=== PATIENT | female | born 1945 | race Caucasian/White ===

== ENCOUNTER → 2019-05-11 | Outpatient (CLI) | payer OTHER ==
[~2019-05-11] MED LIST: CIPR750 PO; RALO60 PO
== END | disposition home or self-care (01) ==
LOC: LAB EV 11:44 → LAB SHORT 11:44
DX: R30.0 Dysuria (principal)
CPT/HCPCS: 87086

== ENCOUNTER 2020-06-06 10:35 | Emergency (ER) | payer OTHER ==
[~2020-06-06] VITALS: Ht 172.7 cm; Wt 65.8 kg
[2020-06-06 11:46] LABS: BASOPHILS ABSOLUTE AUTO 0.03 K/mm3 (0.00-0.23); BASOPHILS PERCENT AUTO 1 % (0-2); EOSINOPHILS ABSOLUTE AUTO 0.18 K/mm3 (0.00-0.68); EOSINOPHILS PERCENT AUTO 4 % (0-6); Hematocrit 36.9 % (33.0-51.0); Hemoglobin 12.3 g/dL (11.5-16.0); IMMATURE GRAN ABSOLUTE AUTO 0.01 K/mm3 (0.00-0.10); IMMATURE GRAN PERCENT AUTO 0 % (0-1); LYMPHOCYTES ABSOLUTE AUTO 1.03 K/mm3 (0.84-5.20); LYMPHOCYTES PERCENT AUTO 21 % (21-46); MONOCYTES PERCENT AUTO 8 % (4-13); Mean Corpuscular HGB Conc 33.3 g/dL (31.5-36.5); Mean Corpuscular Volume 99 fL (80-100); Mean Platelet Volume 9.2 fL (9.1-12.4); NEUTROPHILS ABSOLUTE AUTO 3.29 K/mm3 (1.96-9.15); NEUTROPHILS PERCENT AUTO 67 % (41-73); Platelet Count 255 K/mm3 (150-400); RDW Coefficient Variation 11.5 % (11.7-14.2); RDW Standard Deviation 41.9 fL (35.1-46.3); Red Blood Cell Count 3.73 M/mm3 (3.80-5.20); White Blood Cell Count 4.94 K/mm3 (4.00-11.30)
[2020-06-06 12:09] LABS: Alanine Aminotransfer (ALT/SGP 32 U/L (12-78); Albumin, Blood 3.8 g/dL (3.4-5.0); Albumin/Globulin Ratio 1.2 (0.8-1.8); Alk Phos 79 U/L (50-136); Anion Gap 5 mmol/L (6-16); Aspartate Aminotrans (AST/SGOT 24 U/L (12-37); Bilirubin, Total 0.5 mg/dL (0.1-1.0); Blood Urea Nitrogen 22 mg/dL (8-24); Bun/Creatinine Ratio 22.3 (12.0-20.0); CO2, Blood 27 mmol/L (21-32); Calcium, Blood 8.9 mg/dL (8.5-10.1); Chloride, Blood 107 mmol/L (98-108); Creatinine, Blood 0.99 mg/dL (0.40-1.00); Globulin, Blood 3.2 g/dL (2.2-4.0); Glomerular Filtration Rate 59 (60-); Glucose, Blood 88 mg/dL (70-99); Potassium, Blood 3.8 mmol/L (3.5-5.5); Sodium, Blood 139 mmol/L (136-145); Troponin I <0.015 ng/mL (0.000-0.040)
== END 2020-06-06 12:52 | disposition home or self-care (01) ==
LOC: ER 10:35
PROVIDERS: Physician Assistant
DX: S09.90XA Unspecified injury of head, initial encounter (principal); Z79.899 Other long term (current) drug therapy; Z87.891 Personal history of nicotine dependence; W19.XXXA Unspecified fall, initial encounter
CPT/HCPCS: 36415; 70450; 80053; 84484; 85025; 99284-25

== ENCOUNTER → 2021-09-09 | Outpatient (CLI) | payer OTHER ==
[2021-09-09 14:10] LABS: Stool Occult Bld Immuno 1 Negative (NEGATIVE)
== END | disposition home or self-care (01) ==
LOC: LAB 11:07 → LAB SHORT 11:07
PROVIDERS: Internal Medicine
DX: Z12.11 Encounter for screening for malignant neoplasm of colon (principal)
CPT/HCPCS: G0328

== ENCOUNTER → 2022-07-08 | Outpatient (CLI) | payer OTHER ==
[2022-07-11 14:06] LABS: Stool Occult Bld Immuno 1 Negative (NEGATIVE)
== END | disposition home or self-care (01) ==
LOC: LAB 15:30 → LAB SHORT 15:30
PROVIDERS: Family Medicine
DX: Z12.11 Encounter for screening for malignant neoplasm of colon (principal)
CPT/HCPCS: G0328

== ENCOUNTER 2025-01-03 11:01 | Day surgery (SDC) | payer OTHER ==
[~2025-01-03] VITALS: Ht 165.1 cm; Wt 64.2 kg
[2025-01-03] VITALS (15 sets, daily range): BP systolic 100–135; BP diastolic 63–88
[~2025-01-03 11:01] MED LIST changes: +ATOR10 PO; +Acetaminophen 500 MG Tab PO SCH; +CALCIUM MAGNESIUM ZI; +CITALOPRAM HBR10 MG PO; +CeFAZolin Sodium 2,000 MG in NS 100 ML IV SCH; +Chlorhexidine Mouth Care 15 ML UDC MT SCH; +GLUCHON PO; +LISI5 PO; +Lactated Ringer's 1,000 ML IV SCH; +MULVITA PO; +NAPR220 PO; +OxyCODONE HCL 10 MG TABCR PO SCH; +Ropivacaine 0.5% HCl/Pf 123.125 MG,EPINEPHrine HCL 0.25 MG,Ketorolac Tromethamine 15 MG... INFIL SCH; +THERA-D2000 UNIT PO; +TURMERIC500 M2 PO; +Tranexamic Acid 100 ML IV SCH; +Vancomycin HCL 1,000 MG in NS 250 ML IV SCH
[2025-01-03] MEDS ORDERED: propofoL 20 ML IV ONE ×2 (11:41→14:56)
[2025-01-03] MEDS ORDERED: Metoclopramide HCl 5MG / ML 2ML Vial IV PRN ×2 (11:45→13:05)
[2025-01-03] MEDS ORDERED: Ondansetron HCl 2 MG / ML 2ML Vial IV PRN ×2 (11:45→13:05)
[2025-01-03] MEDS ORDERED: ePHEDrine Sulfate 50 MG/ML 1ML Injection IV PRN (11:45)
[2025-01-03] MEDS ORDERED: HYDROmorphone HCl/Pf 1MG SYR IV PRN ×2 (11:45→13:10)
[2025-01-03] MEDS ORDERED: FentaNYL Citrate 50 MCG/ML 2 ML Injection IV PRN ×2 (11:45)
[2025-01-03] MEDS ORDERED: Albuterol 2.5 MG/3 ML VIAL INH PRN (11:50)
[2025-01-03] MEDS ORDERED: ePHEDrine Sulfate 50 MG/ML 1ML Injection ONE (12:00)
[2025-01-03] MEDS ORDERED: Dexamethasone Sod Phos 10 MG/ML 1ML VIAL ONE (12:01)
[2025-01-03] MEDS ORDERED: Ondansetron HCl 2 MG / ML 2ML Vial ONE (12:01)
[2025-01-03] MEDS ORDERED: Ketorolac Tromethamine 30mg Vial ONE (12:01)
[2025-01-03] MEDS ORDERED: Vasopressin 20 UNITS/ML 1ML Vial ONE (12:31)
--- NOTE | 2025-01-03 12:33 | NUR ---
Ambulatory in Day Surgery. History, Chart, Medications and Allergies reviewed before start of procedure. Lungs clear T/O to Auscultation. Patient confirms NPO status and agrees with scheduled surgery. Pre-Op teaching done. Pt verbalizes understanding. PT BELONGINGS PLACED UNDERNEATH ANIKET FOR SAFEKEEPING. PT GLASSES GIVEN TO HER DAUGHTER JOSE FOR SAFEKEEPING.
[2025-01-03] MEDS ORDERED: FentaNYL Citrate 50 MCG/ML 2 ML Injection ONE (13:04)
[2025-01-03] MEDS ORDERED: Magnesium Hydroxide Conc 10 ML UDC PO PRN (13:05)
[2025-01-03] MEDS ORDERED: Lactated Ringer's 1,000 ML IV SCH (13:05)
[2025-01-03] MEDS ORDERED: Bupivacaine 0.5% Inj 10 ML Vial ONE (13:05)
[2025-01-03] MEDS ORDERED: propofoL 50 ML IV ONE (13:05)
[2025-01-03] MEDS ORDERED: DiphenhydrAMINE HCL 25 MG Cap PO PRN (13:10)
[2025-01-03] MEDS ORDERED: Bisacodyl 10 MG Supp PR PRN (13:10)
[2025-01-03] MEDS ORDERED: Promethazine HCl 25 MG Tab PO PRN (13:10)
[2025-01-03] MEDS ORDERED: OxyCODONE HCL 5 MG TAB PO PRN ×2 (13:15)
[2025-01-03] MEDS ORDERED: Vancomycin HCl 1000 MG ADDvantage ONE (13:15)
[2025-01-03] MEDS ORDERED: DiphenhydrAMINE HCl 50 MG/ML 1ML Vial ONE (13:49)
[2025-01-03] MEDS ORDERED: Acetaminophen 500 MG Tab PO SCH (16:00)
--- NOTE | 2025-01-03 16:07 | NUR ---
POST OP ARRIVAL TO SURGICAL UNIT VIA HOSPITAL BED. ALERT, ORIENTED, & PLEASANT. LUNGS CLEAR & HRR. L KNEE w/ JEAN-PIERRE WRAP & TELFA w/ TEGADERM. NO DRNG NOTED. PPP & ABLE TO WIGGLE TOES. UNABLE TO LIFT LEGS; GOOD SENSATION. DECLINES PAIN MEDS. CRYOTHERAPY IN USE. SNACKS & DRINKS GIVEN. FAMILY TO BEDSIDE.
[2025-01-03] MEDS ORDERED: Lisinopril 5 MG Tab PO SCH (18:00)
[2025-01-03] MEDS ORDERED: Ketorolac Tromethamine 15mg Vial IV SCH (18:00)
[2025-01-03] MEDS ORDERED: Docusate Sodium 100 MG Cap PO SCH (21:00)
[2025-01-03] MEDS ORDERED: CeFAZolin Sodium 2,000 MG in NS 100 ML IV SCH (22:00)
[2025-01-04] MEDS ORDERED: Vancomycin HCL 1,000 MG in NS 250 ML IV SCH
[2025-01-04 05:45] VITALS: BP 129/77
--- NOTE | 2025-01-04 06:08 | NUR ---
SHIFT SUMMARY JOHN WAS ALERT AND FULLY ORIENTED ON ASSESSMENT. PT ABLE AMBULATE TO BR WELL, AND VOID APPROPRIATLY. JEAN-PIERRE DRESSING TO L KNEE C/D/I. PT ON 1-2L O2 FOR SLEEP DT DESAT TO HIGH 80'S WHILE SLEEPING. PT PAIN WELL CONTROLLED AT THIS TIME. NO ACUTE EVENTS THIS SHIFT. NO NOTED CHANGES TO PT CONDITION.
[2025-01-04 06:14] LABS: BASOPHILS ABSOLUTE AUTO 0.03 K/mm3 (0.00-0.23); BASOPHILS PERCENT AUTO 1 % (0-2); EOSINOPHILS ABSOLUTE AUTO 0.02 K/mm3 (0.00-0.68); EOSINOPHILS PERCENT AUTO 0 % (0-6); Hematocrit 32.6 % (33.0-51.0); Hemoglobin 11.1 g/dL (11.5-16.0); IMMATURE GRAN ABSOLUTE AUTO 0.01 K/mm3 (0.00-0.10); IMMATURE GRAN PERCENT AUTO 0 % (0-1); LYMPHOCYTES ABSOLUTE AUTO 1.06 K/mm3 (0.84-5.20); LYMPHOCYTES PERCENT AUTO 16 % (21-46); MONOCYTES ABSOLUTE AUTO 0.66 K/mm3 (0.16-1.47); MONOCYTES PERCENT AUTO 10 % (4-13); Mean Corpuscular HGB 32.6 pg (26.0-34.0); Mean Corpuscular Volume 96 fL (80-100); Mean Platelet Volume 9.1 fL (9.1-12.4); NEUTROPHILS ABSOLUTE AUTO 4.75 K/mm3 (1.96-9.15); NEUTROPHILS PERCENT AUTO 73 % (41-73); Platelet Count 230 K/mm3 (150-400); RDW Coefficient Variation 11.4 % (11.7-14.2); RDW Standard Deviation 39.8 fL (35.1-46.3); Red Blood Cell Count 3.41 M/mm3 (3.80-5.20); White Blood Cell Count 6.53 K/mm3 (4.00-11.30)
[2025-01-04 06:31] LABS: Bun/Creatinine Ratio 19.5 (12.0-20.0); Calcium, Blood 8.4 mg/dL (8.5-10.1); Creatinine, Blood 0.77 mg/dL (0.40-1.00); Magnesium, Blood 2.1 mg/dL (1.6-2.4); Potassium, Blood 4.1 mmol/L (3.5-5.5)
[2025-01-04 07:47] VITALS: BP 168/98
[2025-01-04] MEDS ORDERED: ONDA4ODT SL (08:47)
[2025-01-04] MEDS ORDERED: OXAYDO5 M1 PO (08:48)
[2025-01-04 09:00] VITALS: BP 124/70
[2025-01-04] MEDS ORDERED: Multivitamins 1 Tab PO SCH (09:00)
[2025-01-04] MEDS ORDERED: Citalopram Hydrobromide 10 MG TAB PO SCH (09:00)
[2025-01-04] MEDS ORDERED: Linezolid 600 MG Tab PO SCH (09:00)
[2025-01-04] MEDS ORDERED: Cholecalciferol 1000 Unit Tablet (=25MCG) PO SCH (09:00)
[2025-01-04] MEDS ORDERED: Atorvastatin 10 MG Tab PO SCH (09:00)
[2025-01-04] MEDS ORDERED: Aspirin 81 MG Chew PO SCH (09:00)
[2025-01-04] MEDS ORDERED: Glucosamine Sulfate 500 MG Cap PO SCH (09:00)
--- NOTE | 2025-01-04 09:29 | NUR ---
DISCHARGE PT EDUCATED ON AND RECEIVED PRINTED DISCHARGE INSTRUCTIONS AND VERBALIZED AN UNDERSTANDING. DRESSING SUPPLIES GIVEN TO PT. PT REPORTS FILLING RX'S PRIOR TO SURGERY. IV DC'D. PT GATHERED ALL PERSONAL BELONGINGS AND WAITING FOR RIDE HOME TO GET HERE.
== END 2025-01-04 09:55 | disposition home or self-care (01) ==
LOC: ORSCMMR 11:01 → ORD 13:45 → ORSCMMR 13:45 → ORD 14:15 → SURS 16:00 → ORSCMMR 01-04 09:55
PROVIDERS: Orthopaedic Surgery
PROC: 0SRD0JA Replacement of Left Knee Joint with Synthetic Substitute, Uncemented, Open Approach (ICD-10-PCS; principal; 2025-01-03 13:45)
DX: M17.12 Unilateral primary osteoarthritis, left knee (principal); I10 Essential (primary) hypertension; E78.5 Hyperlipidemia, unspecified; Z87.891 Personal history of nicotine dependence; K21.9 Gastro-esophageal reflux disease without esophagitis; F32.A Depression, unspecified; Z79.899 Other long term (current) drug therapy
CPT/HCPCS: 36415; 73560-LT; 80048; 83735; 85025; 94760; 97116; 97162; 97530; A9270; C1713; C1776; J0171; J0690; J0735; J1100; J1200; J1885; J2405; J2704; J2795; J3010; J3370; J7050; J7120

== ENCOUNTER 2025-01-05 07:20 | Emergency (ER) | payer OTHER ==
[~2025-01-05] VITALS: Ht 165.1 cm; Wt 64.9 kg
[~2025-01-05 07:20] MED LIST changes: -Acetaminophen 500 MG Tab PO SCH; -CeFAZolin Sodium 2,000 MG in NS 100 ML IV SCH; -Chlorhexidine Mouth Care 15 ML UDC MT SCH; -Lactated Ringer's 1,000 ML IV SCH; +ONDA4ODT SL; +OXAYDO5 M1 PO; -OxyCODONE HCL 10 MG TABCR PO SCH; -Ropivacaine 0.5% HCl/Pf 123.125 MG,EPINEPHrine HCL 0.25 MG,Ketorolac Tromethamine 15 MG... INFIL SCH; -Tranexamic Acid 100 ML IV SCH; -Vancomycin HCL 1,000 MG in NS 250 ML IV SCH
[2025-01-05] MEDS ORDERED: Acetaminophen 500 MG Tab PO ONE (07:40)
[2025-01-05 07:50] LABS: BASOPHILS ABSOLUTE AUTO 0.02 K/mm3 (0.00-0.23); BASOPHILS PERCENT AUTO 0 % (0-2); EOSINOPHILS ABSOLUTE AUTO 0.11 K/mm3 (0.00-0.68); EOSINOPHILS PERCENT AUTO 2 % (0-6); Hematocrit 29.6 % (33.0-51.0); Hemoglobin 10.1 g/dL (11.5-16.0); IMMATURE GRAN PERCENT AUTO 0 % (0-1); LYMPHOCYTES ABSOLUTE AUTO 0.86 K/mm3 (0.84-5.20); LYMPHOCYTES PERCENT AUTO 17 % (21-46); MONOCYTES ABSOLUTE AUTO 0.49 K/mm3 (0.16-1.47); MONOCYTES PERCENT AUTO 10 % (4-13); Mean Corpuscular HGB 32.3 pg (26.0-34.0); Mean Corpuscular HGB Conc 34.1 g/dL (31.5-36.5); Mean Corpuscular Volume 95 fL (80-100); Mean Platelet Volume 8.8 fL (9.1-12.4); NEUTROPHILS ABSOLUTE AUTO 3.69 K/mm3 (1.96-9.15); NEUTROPHILS PERCENT AUTO 71 % (41-73); Platelet Count 227 K/mm3 (150-400); RDW Coefficient Variation 11.3 % (11.7-14.2); Red Blood Cell Count 3.13 M/mm3 (3.80-5.20); White Blood Cell Count 5.17 K/mm3 (4.00-11.30)
[2025-01-05 08:09] LABS: Albumin, Blood 3.3 g/dL (3.4-5.0); Albumin/Globulin Ratio 1.6 (0.8-1.8); Bilirubin, Total 0.7 mg/dL (0.1-1.0); Bun/Creatinine Ratio 20.4 (12.0-20.0); Calcium, Blood 8.1 mg/dL (8.5-10.1); Creatinine, Blood 0.84 mg/dL (0.40-1.00); Magnesium, Blood 1.7 mg/dL (1.6-2.4); Potassium, Blood 3.8 mmol/L (3.5-5.5); Total Protein, Blood 5.3 g/dL (6.4-8.2)
[2025-01-05] MEDS ORDERED: NS 1,000 ML IV SCH (08:35)
[2025-01-05 11:00] VITALS: BP 141/67
[2025-01-05] MEDS ORDERED: OxyCODONE HCL 5 MG TAB PO ONE (11:05)
== END 2025-01-05 11:59 | disposition home or self-care (01) ==
LOC: ER 07:20
PROVIDERS: Emergency Medicine
DX: R55 Syncope and collapse (principal); S09.90XA Unspecified injury of head, initial encounter; M25.562 Pain in left knee; Z87.891 Personal history of nicotine dependence; Z91.048 Other nonmedicinal substance allergy status; Z88.9 Allergy status to unspecified drugs, medicaments and biological substances; Z79.1 Long term (current) use of non-steroidal anti-inflammatories (NSAID); Z79.899 Other long term (current) drug therapy
CPT/HCPCS: 70450; 71260; 73562-LT; 80053; 83735; 84484; 85025; 85379; 93005; 93010; 96360-59; 99285-25; A9270; J7030; Q9967

== ENCOUNTER 2025-07-18 11:01 | Day surgery (SDC) | payer OTHER ==
[2025-07-18] VITALS (11 sets, daily range): BP systolic 89–142; BP diastolic 63–100
[~2025-07-18] VITALS: Ht 165.1 cm; Wt 64.1 kg
[2025-07-18] MEDS ORDERED: Chlorhexidine Mouth Care 15 ML UDC MT SCH (11:15)
[2025-07-18] MEDS ORDERED: Ropivacaine 0.5% HCl/Pf 123.125 MG,EPINEPHrine HCL 0.25 MG,Ketorolac Tromethamine 15 MG... INFIL SCH (11:15)
[2025-07-18] MEDS ORDERED: Tranexamic Acid 100 ML IV SCH (11:15)
[2025-07-18] MEDS ORDERED: CeFAZolin Sodium 2,000 MG in NS 100 ML IV SCH ×2 (11:15→23:00)
--- NOTE | 2025-07-18 12:04 | NUR ---
Ambulatory in Day SurgeryPre-Op teaching done. Pt verbalizes understanding. History, Chart, Medications and Allergies reviewed before start of procedure.Patient confirms NPO status and agrees with scheduled surgery.
[2025-07-18] MEDS ORDERED: Metoclopramide HCl 5MG / ML 2ML Vial IV PRN (13:50)
[2025-07-18] MEDS ORDERED: Magnesium Hydroxide Conc 10 ML UDC PO PRN (13:50)
[2025-07-18] MEDS ORDERED: Ondansetron HCl 2 MG / ML 2ML Vial IV PRN ×2 (13:50→15:25)
[2025-07-18] MEDS ORDERED: HYDROcodone 5-APAP 325 TAB PO PRN (13:55)
[2025-07-18] MEDS ORDERED: HYDROmorphone HCl/Pf 1MG SYR IV PRN ×3 (13:55→15:25)
[2025-07-18] MEDS ORDERED: FLU VACC TS2025(65UP)/MF59C/PF 45 MCG/0.5 ML SYRINGE IM SCH (13:55)
[2025-07-18] MEDS ORDERED: Midazolam HCl 1MG / ML 2ML Vial ONE ×2 (14:08→14:50)
[2025-07-18] MEDS ORDERED: FentaNYL Citrate 50 MCG/ML 2 ML Injection ONE (14:08)
[2025-07-18] MEDS ORDERED: FentaNYL Citrate 50 MCG/ML 2 ML Injection IV PRN ×2 (15:25)
[2025-07-18] MEDS ORDERED: ePHEDrine Sulfate 50 MG/ML 1ML Injection ONE (15:38)
[2025-07-18] MEDS ORDERED: Ondansetron HCl 2 MG / ML 2ML Vial ONE (16:36)
[2025-07-18] MEDS ORDERED: Ketorolac Tromethamine 30mg Vial ONE (17:18)
--- NOTE | 2025-07-18 17:46 | NUR ---
PT TO ROOM 221 FROM PACU. IV TO SL. POST OP VS STARTED AND STABLE. PT ABLE TO WIGGLE TOES AND LIFT LEG OFF OF BED. DENIES PAIN OR URGE TO VOID. WATER/FOOD PROVIDED. WILL CONTINUE TO MONITOR.
[2025-07-18] MEDS ORDERED: ACET500 PO (17:51)
[2025-07-18] MEDS ORDERED: Norco 5-325 Ta1 EACH PO (17:52)
[2025-07-18] MEDS ORDERED: LINE600 PO (17:52)
[2025-07-18] MEDS ORDERED: ASPI81CH PO (17:52)
[2025-07-18] MEDS ORDERED: Ketorolac Tromethamine 15mg Vial IV SCH (18:00)
[2025-07-18] MEDS ORDERED: Misc. Capsule PO SCH (21:00)
[2025-07-19 04:17] VITALS: BP 123/75
[2025-07-19 04:30] LABS: BASOPHILS ABSOLUTE AUTO 0.03 K/mm3 (0.00-0.23); BASOPHILS PERCENT AUTO 1 % (0-2); EOSINOPHILS ABSOLUTE AUTO 0.17 K/mm3 (0.00-0.68); EOSINOPHILS PERCENT AUTO 5 % (0-6); Hematocrit 32.4 % (33.0-51.0); Hemoglobin 11.1 g/dL (11.5-16.0); IMMATURE GRAN ABSOLUTE AUTO 0.01 K/mm3 (0.00-0.10); IMMATURE GRAN PERCENT AUTO 0 % (0-1); LYMPHOCYTES ABSOLUTE AUTO 0.74 K/mm3 (0.84-5.20); LYMPHOCYTES PERCENT AUTO 20 % (21-46); MONOCYTES ABSOLUTE AUTO 0.31 K/mm3 (0.16-1.47); MONOCYTES PERCENT AUTO 9 % (4-13); Mean Corpuscular HGB Conc 34.3 g/dL (31.5-36.5); Mean Corpuscular Volume 96 fL (80-100); NEUTROPHILS ABSOLUTE AUTO 2.38 K/mm3 (1.96-9.15); NEUTROPHILS PERCENT AUTO 65 % (41-73); NRBC ABSOLUTE 0.00 K/mm3 (0.00-0.02); NRBC Auto 0.0 /100 WBC (0.0-0.2); Platelet Count 211 K/mm3 (150-400); RDW Coefficient Variation 11.5 % (11.7-14.2); RDW Standard Deviation 40.4 fL (35.1-46.3)
[2025-07-19 04:55] LABS: Anion Gap 6.0 mmol/L (3-11); Blood Urea Nitrogen 12.0 mg/dL (8-24); CO2, Blood 26.0 mmol/L (21-32); Calcium, Blood 8.5 mg/dL (8.5-10.1); Chloride, Blood 103.0 mmol/L (98-108); Creatinine, Blood 0.73 mg/dL (0.40-1.00); Glucose, Blood 105.0 mg/dL (70-99); Magnesium, Blood 2.1 mg/dL (1.6-2.4); Potassium, Blood 3.4 mmol/L (3.5-5.5); Sodium, Blood 132.0 mmol/L (136-145)
[2025-07-19 07:55] VITALS: BP 153/89
--- NOTE | 2025-07-19 08:56 | NUR ---
SUMMARY PT TOLERATING PO,PAIN CONTROLLED,AMBULATORY WITH SBA,VOIDING.
[2025-07-19] MEDS ORDERED: Cholecalciferol 1000 Unit Tablet (=25MCG) PO SCH (09:00)
[2025-07-19] MEDS ORDERED: Multivitamins 1 Tab PO SCH (09:00)
--- NOTE | 2025-07-19 09:58 | NUR ---
PT CLEARED BY PT. I WENT IN TO DISCUSS THE DISCHARGE PLAN WITH PT. PT WOULD LIKE TO BE "DISCHARGED LATE POSSIBLE" PER PT. PT WITH HISTORY OF SYNCOPE AND READMISSION WITH LAST KNEE SURGERY. PLAN TO DC LATE AFTERNOON PER PT. WILL CONTINUE TO MONITOR.
--- NOTE | 2025-07-19 12:15 | NUR ---
Pt. is awake in bed and welcomes this construction coordinator from the community. Pt. is pleasant. Facilitated an update aand Pt. verbalized that this was her second knee replacement and that she felt confidant about her recovery. Considered matters of jose and belief. Pastoral Funnel Coater is given. Ptayed with the Pt. Pt. verbalized gratitude for the spiritual care visit.
--- NOTE | 2025-07-19 16:46 | NUR ---
DISCHARGE INSTRUCTION REVIEWED WITH PT. STATED UNDERSTANDING. PLAN FOR DC AT 1800 WHEN DAUGHTER JOSE ARRIVES FOR TRANSPORT HOME.
[2025-07-19 17:06] VITALS: BP 146/84
== END 2025-07-19 18:04 | disposition home or self-care (01) ==
LOC: ORSCMMR 11:01 → SURS 17:02 → ORSCMMR 07-19 18:04 → ORD 08-01 07:30
PROVIDERS: Orthopaedic Surgery
PROC: 0SRC0JA Replacement of Right Knee Joint with Synthetic Substitute, Uncemented, Open Approach (ICD-10-PCS; principal; 2025-07-18 13:30)
DX: M17.11 Unilateral primary osteoarthritis, right knee (principal); I10 Essential (primary) hypertension; K21.9 Gastro-esophageal reflux disease without esophagitis; F32.A Depression, unspecified; Z87.891 Personal history of nicotine dependence; Z79.899 Other long term (current) drug therapy; Z96.652 Presence of left artificial knee joint
CPT/HCPCS: 36415; 73560-RT; 80048; 83735; 85025; 97110; 97116; 97162; 97530; A9270; C1713; C1776; J0166; J0690; J0735; J1885; J2250; J2405; J2704; J2795; J3010; J3373; J7050; J7120